=== PATIENT | male | born 1990 | race African-American/Black ===

== ENCOUNTER 2017-02-21 11:54 | Emergency (ER) | payer OTHER ==
[~2017-02-21] VITALS: Ht 190.5 cm; Wt 82.0 kg
[2017-02-21 11:57] VITALS: BP 137/83; PULSE 69; RESP 18; TEMP 97.4; O2SAT 100
--- NOTE | 2017-02-21 12:03 | PD ---
Physical Exam Time Seen by Provider: 11:59 Narrative Patient presents to the ED for evaluation of right mid and right rib pain for 6 months. States it has been intermittent for 6 mos and this recent flare up is worse. Movement makes it worse. sleeping on the right side makes it worse. Plays soccer and falls down a lot. Takes no medications. No medical history. VSS. Awaiting bed placement. Data Data Last Documented VS Vital Signs Date Time Temp Pulse Resp B/P Pulse Ox O2 Delivery O2 Flow Rate FiO2 02/21/17 11:57 97.4 69 18 137/83 100 Room Air MDM Supervised Visit with ISAI: Gloria Hall Feb 21, 2017 12:03
--- NOTE | 2017-02-21 12:28 | PD ---
HPI Chief Complaint: Chest Pain Time Seen by Provider: 12:28 Travel History International Travel<30 days: No Contact w/Intl Traveler<30days: No Traveled to known affect area: No History of Present Illness HPI 26-year-old male presents to the emergency department for evaluation of right lower chest wall pain and intermittent midsternal chest pain. Patient states that these pains have been ongoing for over 6 months. He does state that the pain is worse with moving. He states that the right lower chest wall pain will move at times around the area. He states he has not gotten worse over the last 6 months. When asked why he came to the emergency department today, he stated "I just want to know what's going on". He does state that he plays soccer and goes to the gym often. He is unsure if it is worse after he does these activities. He denies any nausea, vomiting, diarrhea. No shortness of breath. No recent surgeries or travel. No leg edema. No hemoptysis. No history DVT or PE. He denies any cardiac history. He denies any family history of cardiac problems. He has no medical problems takes no medications. He denies any drug use. No IVDU. No tobacco use. He only drinks alcohol socially. He denies any other complaints at this time. Patient denies any midsternal chest pain at this time [facility] Past Medical History Medical History: Denies Significant Hx Tetanus Vaccination: Unknown Influenza Vaccination: No Past Surgical History Surgical History: No Previous Surgery Social History Alcohol Use: No Tobacco Use: No Substance Use: No Allergies-Medications (Allergen,Severity, Reaction): Coded Allergies: No Known Allergies (Unverified , 02/21/17) Reported Meds & Prescriptions Reported Meds & Active Scripts Active No Active Prescriptions or Reported Medications Review of Systems Except as stated in HPI: all other systems reviewed are Neg Physical Exam Narrative GENERAL: Well-nourished, well-developed male patient, ambulatory. Afebrile. SKIN: Focused skin assessment warm/dry. HEAD: Normocephalic. Atraumatic EYES: No scleral icterus. No injection or drainage. NECK: Supple, trachea midline. No JVD or lymphadenopathy. CARDIOVASCULAR: Regular rate and rhythm without murmurs, gallops, or rubs. Radial and pedal pulses 2+. RESPIRATORY: Breath sounds equal bilaterally. No accessory muscle use. Lungs sounds are clear to auscultation throughout GASTROINTESTINAL: Abdomen soft, non-tender, nondistended. No right upper quadrant tenderness to palpation. MUSCULOSKELETAL: No cyanosis, or edema. He has easily reproducible tenderness over the right lower ribs. BACK: Nontender without obvious deformity. No CVA tenderness. Data Data Last Documented VS Vital Signs Date Time Temp Pulse Resp B/P Pulse Ox O2 Delivery O2 Flow Rate FiO2 02/21/17 11:57 97.4 69 18 137/83 100 Room Air Orders Chest, Single Ap (02/21/17 ) Electrocardiogram (02/21/17 ) [facility] Medical Decision Making Medical Screen Exam Complete: Yes Emergency Medical Condition: Yes Medical Record Reviewed: Yes Interpretation(s) Last Impressions Chest X-Ray 02/21/17 0000 Signed Impressions: Service Date/Time: Sunday, February 21, 2017 12:31 - CONCLUSION: No acute disease. Robin Max MD Differential Diagnosis Muscle strain versus muscle spasm versus unlikely pneumothorax Narrative Course 26-year-old male presents to the emergency department for intermittent midsternal chest pain and intermittent right lower chest wall pain. He has no midsternal chest pain at this time. Right lower chest wall pain is easily reproducible. Physical exam is consistent with a muscle strain. Patient is PERC negative. EKG shows sinus bradycardia, heart rate 54, no acute ST changes. Chest x-ray shows no acute abnormality. Patient is given Toradol 60 mg IM. He'll be discharged with a prescription for ibuprofen. Patient verbalizes agreement and understanding to this plan. The patient was discharged in stable condition with instructions, including return instructions and follow up instructions. Diagnosis Primary Impression: Chest wall pain Additional Impression: Muscle strain of chest wall Qualified Code: S29.011A - Muscle strain of chest wall, initial encounter Referrals: Primary Care Physician call for appointment Patient Instructions: Chest Wall Pain (ED), General Instructions Additional Instructions: Take ibuprofen as instructed as needed with food for pain. Follow-up with your primary care physician. Return to the emergency department for any acute worsening of symptoms. Med/Other Pt SpecificInfo: Prescription(s) given Scripts Ibuprofen 800 Mg [id number] Mg PO TID PRN (PAIN SCALE 1 TO 10) #21 TAB Ref 0 Prov:Mirella Isidro 02/21/17 Disposition: 01 DISCHARGE HOME Condition: Stable Mirella Isidro Feb 21, 2017 12:28
--- NOTE | 2017-02-21 12:49 | RADRPT ---
EXAM DATE/TIME: 02/21/2017 12:31 [facility] COMPARISON: No previous studies available for comparison. INDICATIONS : Chest pain. MEDICAL HISTORY : None. SURGICAL HISTORY : None. ENCOUNTER: Initial ACUITY: 4 - 6 months PAIN SCORE: 6/10 LOCATION: middle chest. FINDINGS: A single view of the chest demonstrates the lungs to be symmetrically aerated without evidence of mas s, infiltrate or effusion. The cardiomediastinal contours are unremarkable. Osseous structures are intact. CONCLUSION: No acute disease. Robin Max MD on February 21, 2017 at 12:48 Board Certified Radiologist. This report was verified electronically.
[2017-02-21] MEDS ORDERED: KETOROLAC TROMETHAMINE 60 MG/2 ML (IM) VIAL IM ONE (13:00)
[2017-02-21] MEDS ORDERED: IBUP800T23 PO (13:02)
--- NOTE | 2017-02-21 13:03 | PD ---
Data Data Last Documented VS Vital Signs Date Time Temp Pulse Resp B/P Pulse Ox O2 Delivery O2 Flow Rate FiO2 02/21/17 11:57 97.4 69 18 137/83 100 Room Air Orders Chest, Single Ap (02/21/17 ) Electrocardiogram (02/21/17 ) Ketorolac Inj (Toradol Inj) (02/21/17 13:00) MDM Supervised Visit with ISAI: Yes Narrative Course The history, exam, and medical decision-making in the associated midlevel provider note were completed with my assistance. I reviewed and agree with the findings presented. I attest that I had a [id number] encounter with the patient on the same day, and personally performed and documented my assessment and findings in the medical record. *My assessment and Findings: This is a 26-year-old male who presents to the emergency department with atypical chest pain in the epigastrium that radiates to the right back. He has a nontender abdomen. He is very well-appearing and his pain is subacute and has been going on for 6 months. Chest x-ray and EKG were reassuring. I think patient is appropriate for an outpatient evaluation by his primary care physician. I doubt an emergent etiology of the symptoms. Scripts Ibuprofen 800 Mg [id number] Mg PO TID PRN (PAIN SCALE 1 TO 10) #21 TAB Ref 0 Prov:Mirella Isidro 02/21/17 Vicky Clark MD Feb 21, 2017 13:03
[2017-02-21 13:42] VITALS: BP 123/76
--- NOTE | 2017-02-22 17:33 | EKG ---
Date Performed: 02/21/2017 Time Performed: 12:16:55 PTAGE: 26 years EKG: SINUS BRADYCARDIA BORDERLINE ECG NO PREVIOUS TRACING DOCTOR: Tate Meza Interpretating Date/Time 02/22/2017 17:29:37
== END 2017-02-21 13:48 | disposition home or self-care (01) ==
LOC: NEPD 11:54
DX: S29.011A Strain of muscle and tendon of front wall of thorax, initial encounter (principal); X50.9XXA Other and unspecified overexertion or strenuous movements or postures, initial encounter
CPT/HCPCS: 71010; 93005; 96372; 99283; J1885